=== PATIENT | male | born 1960 | race Caucasian/White ===

== ENCOUNTER → 2019-05-07 | Outpatient (CLI) | payer OTHER | LOC: COL.RAD 09:58 | DX: M48.07 Spinal stenosis, lumbosacral region (principal); M51.17 Intervertebral disc disorders with radiculopathy, lumbosacral region ==

== ENCOUNTER → 2019-06-18 | Outpatient (CLI) | payer OTHER | LOC: MHCPAIN 10:20 | DX: M47.817 Spondylosis without myelopathy or radiculopathy, lumbosacral region (principal); M54.16 Radiculopathy, lumbar region | CPT/HCPCS: G0463 ==

== ENCOUNTER → 2019-06-26 | Outpatient (CLI) | payer OTHER | LOC: MHCPAIN 09:41 | DX: M54.5 Low back pain (principal) | CPT/HCPCS: J1100; Q9967 ==

== ENCOUNTER → 2019-07-08 | Outpatient (CLI) | payer OTHER | LOC: MHCPAIN 10:09 | DX: M53.3 Sacrococcygeal disorders, not elsewhere classified (principal); M47.27 Other spondylosis with radiculopathy, lumbosacral region; E11.9 Type 2 diabetes mellitus without complications; Z79.84 Long term (current) use of oral hypoglycemic drugs | CPT/HCPCS: G0463 ==

== ENCOUNTER → 2019-07-31 | Outpatient (CLI) | payer OTHER | LOC: MHCPAIN 09:45 | DX: M54.5 Low back pain (principal) | CPT/HCPCS: J1100; Q9967 ==

== ENCOUNTER → 2023-06-13 | Outpatient (CLI) | payer OTHER | LOC: MHCPAIN 14:39 | DX: M47.816 Spondylosis without myelopathy or radiculopathy, lumbar region (principal); M48.062 Spinal stenosis, lumbar region with neurogenic claudication; E11.9 Type 2 diabetes mellitus without complications | CPT/HCPCS: G0463 ==

== ENCOUNTER → 2024-01-23 | Outpatient (CLI) | payer MEDICARE, OTHER | LOC: MHCPAIN 10:41 | DX: M51.36 Other intervertebral disc degeneration, lumbar region (principal); M51.26 Other intervertebral disc displacement, lumbar region; M48.061 Spinal stenosis, lumbar region without neurogenic claudication; M06.9 Rheumatoid arthritis, unspecified; E11.9 Type 2 diabetes mellitus without complications; Z79.84 Long term (current) use of oral hypoglycemic drugs | CPT/HCPCS: G0463 ==